=== PATIENT | female | born 1990 | race African-American/Black ===

== ENCOUNTER 2017-03-19 17:05 | Inpatient (IN) | payer MEDICARE ==
[2017-03-19 17:09] VITALS: BMI 27.4
--- NOTE | 2017-03-19 17:18 | PDOC ---
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 Pt is . She is 5 weeks with a LMP 02/11. Went to see Dr Andersen with a beta HCG 4327 on 03/17 and nothing seen on sono. Pt went to Dr Palomares again 03/19 with a beta hcg 5894. At an urgent care she went for a sono with a suggestive right ectopy. She is now here for work up to r/o ectopy vs miscarrage. Past History - Past Medical History Allergies/Adverse Reactions: Allergies Allergy/AdvReac Type Severity Reaction Status Date / Time No Known Allergies Allergy Verified 03/19/17 17:09 Home Medications: Ambulatory Orders NK [No Known Home Medication] 03/19/17 Other medical history: denies - Suicide/Smoking/Psychosocial Hx Smoking History: Never smoked Information on smoking cessation initiated: No Hx Alcohol Use: No Drug/Substance Use Hx: No Substance Use Type: None Review of Systems - Review of Systems Able to Perform ROS?: Yes All Other Systems: Reviewed and Negative *Physical Exam - Vital Signs Last Vital Signs Temp Pulse Resp BP Pulse Ox 98.2 F 85 18 118/68 99 03/19/17 17:07 03/19/17 17:07 03/19/17 17:07 03/19/17 17:07 03/19/17 17:07 - Physical Exam HEENT: positive: Normal ENT Inspection Respiratory/Chest: positive: Lungs Clear Cardiovascular: positive: Regular Rhythm, Regular Rate Gastrointestinal/Abdominal: positive: Normal Bowel Sounds, Flat, Soft, Other ( denies any pain) Extremity: positive: Normal Capillary Refill, Normal Inspection Integumentary: positive: Dry, Warm Neurologic: positive: Fully Oriented ED Treatment Course - LABORATORY CBC & Chemistry Diagram: 03/19/17 17:30 Medical Decision Making - Medical Decision Making 03/19/17 18:13 Pt seen and examained. Pt to undergo a u/s of pelvic for evaluation of ectopic . while in ER the pt developed vaginal bleeding with clots being passed. =labs -beta hcg -transvaginal -notifiy Dr. Alcaraz the results
--- NOTE | 2017-03-19 17:52 | PDOC ---
*Physical Exam - Vital Signs Last Vital Signs Temp Pulse Resp BP Pulse Ox 98.2 F 85 18 118/68 99 03/19/17 17:07 03/19/17 17:07 03/19/17 17:07 03/19/17 17:07 03/19/17 17:07 - Physical Exam Comments: 03/19/17 17:52 The patient was examined by [KEVYN Ferrell] under my direct supervision. I personally evaluated the patient. I concur with the above findings and the plan of care. 03/19/17 21:34 Patient with right adnexal ectopic with FH. Patient evaluated by Dr. Palomares of [facility] and advised of the need for laparoscopy and likely salpingectomy but is currently refusing. Patient wishes to be administered methotrexate which she has been advised is a less desirable option for treatment of her ectopic at this time. Patient is expressed understanding that she is still at risk of rupture of ectopic which may necessitate emergent surgery, transfusion of blood and may result of patient's . Patient is signing out AGAINST MEDICAL ADVICE at this time. 03/19/17 21:54 pt changed her mind and will undergo laporotomy. ED Treatment Course - LABORATORY CBC & Chemistry Diagram: 03/19/17 17:30 *DC/Admit/Observation/Transfer Diagnosis at time of Disposition: Ectopic - Discharge Dispostion Condition at time of disposition: Guarded
[2017-03-19 17:54] LABS: BASOPHIL 1.2 % (0-2.0); EOSINOPHIL 1.8 % (0-4.5); MCH 28.5 pg (25.7-33.7); MCHC 32.9 g/dl (32.0-36.0); MEAN CELL VOLUME 86.6 fl (80-96); MEAN PLT VOLUME 9.4 fl (7.5-11.1); NEUTROPHILS 63.5 % (42.8-82.8); PLATELET COUNT 236 K/MM3 (134-434); RDW 13.6 % (11.6-15.6); WHITE BLOOD COUNT 5.9 K/mm3 (4.0-10.0)
[2017-03-19 18:24] LABS: URINE APPEARANCE CLEAR; URINE BILIRUBIN NEGATIVE (NEGATIVE); URINE BLOOD 2+ (NEGATIVE); URINE COLOR YELLOW; URINE GLUCOSE (UA) NEGATIVE (NEGATIVE); URINE KETONE NEGATIVE (NEGATIVE); URINE NITRITE NEGATIVE (NEGATIVE); URINE PROTEIN NEGATIVE (NEGATIVE); URINE UROBILINOGEN NEGATIVE mg/dL (0.2-1.0)
[2017-03-19 18:29] LABS: URINE BACTERIA FEW /hpf (NONE SEEN); URINE MUCUS FEW; URINE RBC 42 /hpf (0-3)
--- NOTE | 2017-03-19 19:52 | PDOC ---
*Physical Exam - Vital Signs Last Vital Signs Temp Pulse Resp BP Pulse Ox 98.2 F 85 18 118/68 99 03/19/17 17:07 03/19/17 17:07 03/19/17 17:07 03/19/17 17:07 03/19/17 17:07 - Physical Exam General Appearance: Yes: Nourished ED Treatment Course - LABORATORY CBC & Chemistry Diagram: 03/19/17 17:30 - ADDITIONAL ORDERS Additional order review: Laboratory Results 03/19/17 03/19/17 03/19/17 18:00 17:30 17:30 Beta HCG, Quant 6634.2 Urine Color Yellow Urine Appearance Clear Urine pH 5.0 Urine Protein Negative Urine Glucose (UA) Negative Urine Ketones Negative Urine Blood 2+ H Urine Nitrite Negative Urine Bilirubin Negative Urine Urobilinogen Negative Urine RBC 42 Urine Bacteria Few Urine Mucus Few Blood Type A POSITIVE Antibody Screen Cancelled Spec Expiration Date Cancelled 03/19/17 17:30 RBC 4.70 MCV 86.6 MCHC 32.9 RDW 13.6 MPV 9.4 Neutrophils % 63.5 Lymphocytes % 22.7 Monocytes % 10.8 H Eosinophils % 1.8 Basophils % 1.2 Progress Note - Progress Note Progress Note: 1948hrs: Called Dr. Palomares/[phone]/ notified of right sided ectopic 0.28cm 5 weeks/6 days. Will come in to see pt in the ER *DC/Admit/Observation/Transfer Diagnosis at time of Disposition: Ectopic Qualifiers: Location of ectopic : tubal Intrauterine status: without intrauterine Laterality: right Qualified Code(s): O00.101 - Right tubal without intrauterine ; O00.101 - Right tubal without intrauterine - Discharge Dispostion Condition at time of disposition: Guarded Admit: Yes
[2017-03-19] MEDS ORDERED: METHOTREXATE SODIUM/PF 25 MG/ML VIAL IM ONE (21:16)
--- NOTE | 2017-03-19 21:26 | CON.OBG ---
Consult Consult Specialty:: ER Referred by:: Dr. He Reason for Consultation:: Right ectopic - History of Present Illness Chief Complaint: Pt is found to have a right ectopic on outpatient US. She was referred to ER for evaluation and treatment. In the ER, the dx of right ectopic was confirmed. She is asymptomatic. No pain, bleeding, SOB, chest pain, etc. History of Present Illness: LMP 02/11/17. No IUD on US. (+) right ectopic on/near right ovary, with (+) FHR= 102. No free fluid. Official report is pending. - History Source History Provided By: Patient, Medical Record Limitations to Obtaining History: No Limitations - Past Medical History PEOPLE GREETER: No: Alzheimer's, CVA, Dementia, Migraine, Multiple Sclerosis, Peripheral Neuropathy, Parkinson's, Seizure, Syncope, TIA, Vertigo, Other Cardio/Vascular: No: AFIB, Aneurysm, Aortic Insufficiency, Aortic Stenosis, CAD , CHF, Deep Vein Thrombosis, HTN, Hyperlipdemia, [place], Mitral Insufficiency, Mitral Stenosis, Murmur, Pulmonary Hypertension, Other Pulmonary: Yes: Asthma Gastrointestinal: No: Ascites, Cancer, Constipation, Crohn's Disease, Diverticulitis, Diverticulosis, Esophageal Varices, Gastritis, GERD, GI Bleed, Hemorrhoids, Hiatal Hernia, Inflamatory Bowel Disease, Irritable Bowel Disease, Pancreatitis, Peptic Ulcer Disease, Ulcerative Colitis, Other Hepatobiliary: No: Cirrhosis, Cholelithiasis, Cholecystitis, Choledocholithiasis , Hepatitis A, Hepatitis B, Hepatitis C, Other Renal/: No: Renal Failure, Renal Inusuff, BPH, Cancer, Hematuria, Hemodialysis , Neurogenic Bladder, Renal Calculi, UTI, Other Reproductive: No: Ectopic , Endometriosis, Fibroids, PID, Polycystic Ovary Syndrome, Postmenopausal, Other ...LMP: 02/11/17 ...: Yes Heme/Onc: No: Anemia, B12 Deficiency, Bleeding Disorder, Cancer, Current Chemotherapy, Current Radiation Therapy, Hemochromatosis, Hypercoaguable State, Myeloproliferative Synd, Sickle Cell Disease, Sickle Cell Trait, Thrombocytopenia, Other Infectious Disease: No: AIDS, C-Diff, Herpes Zoster, HIV, MRSA, STD's, Tuberculosis, VREF, Other Psych: No: Addictions, Anxiety, Bipolar, Depression, Panic, Psychosis, Schizophrenia, Other Musculoskeletal: No: Bursitis, Chronic low back pain, Hemiparesis, Hemiplegia, Osteoarthritis, Paraplegia, Other Rheumatology: No: Fibromyalgia, Gout, Lupus, Rheumatoid Arthritis, Sarcoidosis, Vasculitis, Other ENT: No: Allergic Rhinitis, Sinusitis, Other Endocrine: No: [place]'s Disease, Walker's Disease, Diabetes Insipidus, Diabetes Mellitus, Hyperparathyroidism, Hyperthyroidism, Hypothyroidism, Osteopenia, SIADH, Other Dermatology: No: Basal Cell, Cellulitis, Eczema, Melanoma, Psoriasis, Squamous Cell, Other - Past Surgical History Past Surgical History: Yes: None - Alcohol/Substance Use Hx Alcohol Use: No History of Substance Use: reports: None - Smoking History Smoking history: Former smoker (stopped recently) Have you smoked in the past 12 months: Yes - Social History Usual Living Arrangement: With Significant Other ADL: Independent Occupation: Maintenance Inspector at a [employer] Place of : Other ([place]) Came to [place] (year[place] 2012 History of Recent Travel: No Home Medications - Allergies Allergies/Adverse Reactions: Allergies Allergy/AdvReac Type Severity Reaction Status Date / Time No Known Allergies Allergy Verified 03/19/17 17:09 - Home Medications Home Medications: Ambulatory Orders NK [No Known Home Medication] 03/19/17 Family Disease History - Family Disease History Family Disease History: Respiratory: Brother (Asthma), Other: Mother (Thyroid dz ) Review of Systems - Review of Systems Constitutional: reports: No Symptoms Eyes: reports: No Symptoms HENT: reports: No Symptoms Neck: reports: No Symptoms Cardiovascular: reports: No Symptoms Respiratory: reports: No Symptoms Gastrointestinal: reports: No Symptoms Genitourinary: reports: No Symptoms Breasts: reports: No Symptoms Reported Musculoskeletal: reports: No Symptoms Integumentary: reports: No Symptoms Neurological: reports: No Symptoms Endocrine: reports: No Symptoms Hematology/Lymphatic: reports: No Symptoms Psychiatric: reports: No Symptoms Pain Intensity: 0 Physical Exam-CASE FINISHER Vital Signs: Vital Signs Temperature 99.4 F 03/19/17 20:39 Pulse Rate 85 03/19/17 20:39 Respiratory Rate 17 03/19/17 20:39 Blood Pressure 109/75 03/19/17 20:39 O2 Sat by Pulse Oximetry (%) 100 03/19/17 20:39 Constitutional: Yes: Well Nourished, No Distress, Calm Eyes: Yes: WNL, Conjunctiva Clear HENT: Yes: WNL, Atraumatic, Normocephalic Neck: Yes: WNL, Supple, Trachea Midline Cardiovascular: Yes: WNL, Regular Rate and Rhythm Respiratory: Yes: WNL, Regular, CTA Bilaterally Gastrointestinal: Yes: WNL, Normal Bowel Sounds, Soft ...Rectal Exam: Yes: Deferred Renal/: Yes: WNL Pelvis: Yes: WNL External Genitalia: Yes: Normal Vaginal Exam: Yes: Normal Cervix: Yes: Normal Uterus: Yes: Normal Adnexa: Normal: Left, Tender: Right (mildly tender) Musculoskeletal: Yes: WNL Extremities: Yes: WNL Edema: No Integumentary: Yes: WNL Neurological: Yes: WNL, Alert, Oriented ...Motor Strength: WNL Psychiatric: Yes: WNL, Alert, Oriented Labs: CBC, BMP 03/19/17 17:30 Assessment/Plan 26yo P2 with right ectopic that is not ruptured and pt is asymptomatic. The US detected a positive FHR. I had several discussions with the pt and her partner about the diagnosis of the right ectopic and treatment options. We discussed the options of surgery and MTX. I explained the risks of ruptured ectopic , hemorrhage, need for emergency operations, blood transfusion, etc. I also explained the surgical risks at length, including but not limited to bleeding, infection, scarring, pain, injury/ perforation of surrounding structures or organs, need for laparotomy, excision of the Fallopian tube and/or ovary, need for additional surgery to repair and treat any complications, etc. I explained that all surgeries have risks and no guarantees can be provided. The pt initially considered MTX, then changed her mind and decided to proceed with surgery. The consent form was signed.
[2017-03-19 22:57] LABS: URINE LEUK ESTERASE Negative (NEGATIVE)
[2017-03-19] MEDS ORDERED: LACTATED RINGERS SOLUTION 1,000 ML IV SCH (23:30)
[2017-03-19] MEDS ORDERED: LIDOCAINE HCL/PF 2% SDV 5ML VIAL ONE (23:48)
[2017-03-19] MEDS ORDERED: PROPOFOL 20 ML ONE (23:49)
[2017-03-19] MEDS ORDERED: MIDAZOLAM HCL 2 MG/2 ML SINGLE DOSE VIAL ONE (23:49)
[2017-03-19] MEDS ORDERED: ROCURONIUM BROMIDE 50 MG/5 ML VIAL ONE (23:49)
[2017-03-19] MEDS ORDERED: DEXAMETHASONE SOD PHOSPHATE 4 MG/1 ML VIAL ONE (23:49)
[2017-03-20] MEDS ORDERED: ceFAZolin SODIUM 1 GM VIAL ONE
[2017-03-20] MEDS ORDERED: ceFAZolin SODIUM 1 GM VIAL IVPB ONE (00:02)
[2017-03-20] MEDS ORDERED: DEXAMETHASONE SOD PHOSPHATE 4 MG/1 ML VIAL ONE (00:51)
[2017-03-20] MEDS ORDERED: BUPIVACAINE HCL/PF 0.5% (5MG/ML) 10 ML VIAL IJ ONE ×2 (00:58)
[2017-03-20] MEDS ORDERED: NEOSTIGMINE METHYLSULFATE 0.5 MG/ML - 10 ML MDV ONE (01:05)
[2017-03-20] MEDS ORDERED: GLYCOPYRROLATE 0.2 MG/1 ML VIAL ONE (01:05)
[2017-03-20] MEDS ORDERED: oxyCODONE HCL 5 MG TABLET PO PRN (01:07)
[2017-03-20] MEDS ORDERED: ACETAMINOPHEN 325 MG TABLET (FP) PO PRN (01:07)
[2017-03-20] MEDS ORDERED: IBUPROFEN 600 MG TABLET (FP) PO PRN (01:07)
[2017-03-20] MEDS ORDERED: ONDANSETRON 4 MG/2 ML VIAL IVPUSH PRN (01:15)
[2017-03-20] MEDS ORDERED: HYDROmorphone HCL CARPU-JECT 2 MG/1 ML DISP.SYRIN ONE ×2 (01:16→01:35)
[2017-03-20] MEDS: HYDROmorphone HCL CARPU-JECT 1 MG/1 ML DISP.SYRIN IVPUSH PRN ×3 (01:16→01:36)
--- NOTE | 2017-03-20 01:17 | OP ---
Operative Note - Note: Operative Date: 03/20/17 Pre-Operative Diagnosis: Right ectopic Operation: 1. Laparoscopic right salpingoophorectomy. 2. D&C Findings: Scant endometrial curettings on D&C. Hemoperitoneum ~10 ml. Multiple pelvic adhesions b/w bilateral Fallopian tubes, ovaries, uterus. The right Fallopian tube was densely adherent to the right ovary/ovarian mass. The right Fallopian tube was dilated with an ectopic and bleeding from the fibriated end. The right ovary was replaced by a large complex ovarian mass/tube complex and the entire structure was observed to be twisted around the utero-ovarian ligament c/w torsion and adherent to the uterine cornua. Otherwise normal uterus. The left ovary contained a simple cyst. Post-Operative Diagnosis: Same as Pre-op Surgeon: Abdullahi Palomares Manager Agency: Tenisha Marin Anesthesiologist/DIABETES SOLUTIONS SPECIALIST: Ishmael Boo Anesthesia: General Specimens Removed: 1. Endometrial curettings. 2. Right Fallopian tube with ectopic pegnancy and right ovary with ovarian mass. The right ovarian mass was opened withing the endobag and noted to be c/w dermoid cyst consisting of sebacious material, hair, teeth. Estimated Blood Loss (mls): 5 (hemoperitoneum 10ml) Drains & Tubes with Location: Banda Cath Drains, Volume Out (mls): 100 Blood Volume Replaced (mls): 0 Fluid Volume Replaced (mls): 1,000 Operative Report Dictated: Yes
[2017-03-20] MEDS ORDERED: HYDROmorphone HCL CARPU-JECT 1 MG/1 ML DISP.SYRIN IVPUSH PRN (01:45)
[2017-03-20 10:32] VITALS: BP 108/76; PULSE 90; TEMP 98.8
--- NOTE | 2017-03-20 10:50 | DS ---
Physical Exam-INTERNATIONAL TRAVEL CONSULTANT Vital Signs: Vital Signs Temperature 98.8 F 03/20/17 10:00 Pulse Rate 90 03/20/17 10:00 Respiratory Rate 20 03/20/17 10:00 Blood Pressure 108/76 03/20/17 10:00 O2 Sat by Pulse Oximetry (%) 98 03/20/17 02:45 Constitutional: Yes: Well Nourished, No Distress, Calm Eyes: Yes: WNL, Conjunctiva Clear, EOM Intact HENT: Yes: WNL, Atraumatic, Normocephalic Neck: Yes: WNL, Supple, Trachea Midline Cardiovascular: Yes: WNL, Regular Rate and Rhythm Respiratory: Yes: WNL, Regular, CTA Bilaterally Gastrointestinal: Yes: WNL, Normal Bowel Sounds, Soft ...Rectal Exam: Yes: Deferred Renal/: Yes: WNL Pelvis: Yes: WNL External Genitalia: Yes: Normal Internal Exam Deferred: Yes Musculoskeletal: Yes: WNL Extremities: Yes: WNL Edema: No Integumentary: Yes: WNL Wound/Incision: Yes: Clean/Dry, Well Approximated, Sutures Intact Neurological: Yes: WNL, Alert, Oriented ...Motor Strength: WNL Psychiatric: Yes: WNL, Alert, Oriented Discharge Summary Reason For Visit: ECTOPIC Current Active Problems Ectopic (Acute) Right Dermoid cyst Procedures: Principal: Laparoscopic right salpingoophorectomy Condition: Guarded - Instructions Diet, Activity, Other Instructions: Return to your doctor's office in 2-[address] Abdullahi Palomares Cut Out Marker discharge instructions Physical activity Resume your normal everyday activity as tolerated no heavy lifting or exercise until seen by your surgeon. You may walk unlimited jose of and climb stairs. You may resume driving the car when you feel safe and comfortable behind the wheel. No sexual activity as instructed by Dr. Palomares. Wound care If you have a bandage, leave it on, and keep dry for 48-72 hours. After that time discard the outer bandage. If they are tapes on the skin under the out of bandage leave them in place. They will peel off in the next 7 to 10 days. Do Not Peel them off. You may shower the day after surgery. If there are tapes present on the skin, you may shower over them. Diet There are no dietary restrictions. Eat healthy, high-fiber foods. Drink 6 to 8 glasses of liquid each day. This will assist in keeping your bowels are regular. Pain management You may take Tylenol or acetaminophen or Ibuprofen (for example, Motrin, Advil etc.) from my pain prescription medication is ordered should be taken as prescribed for moderate to severe pain. Call Dr. Palomares for any of the following: Severe pain not relieved by medication Fever of 101 or higher Excessive bleeding or drainage on dressing Inability to urinate Call the office at [phone] for an appointment in 2-3 weeks. Referrals: Abdullahi Palomares MD [Staff Physician] - Disposition: HOME - Home Medications Comprehensive Discharge Medication List: Ambulatory Orders NK [No Known Home Medication] 03/19/17
--- NOTE | 2017-03-20 13:54 | OP ---
DATE OF OPERATION: 03/20/2017 PREOPERATIVE DIAGNOSIS: Right ectopic . POSTOPERATIVE DIAGNOSIS: Right ectopic with a large right ovarian mass that, upon further investigation, was consistent with a mature teratoma. SURGEON: Abdullahi Palomares MD PARTNERSHIP DEVELOPMENT MANAGER: Tenisha Marin MD ANESTHESIOLOGIST: Ishmael Boo MD ANESTHESIA: General. COMPLICATIONS: None. ESTIMATED BLOOD LOSS: 5 mL plus 10 mL of hemoperitoneum. PROCEDURE: 1. Dilation and curettage. 2. Laparoscopic right salpingo-oophorectomy. 3. Lysis of adhesions. PATHOLOGY: Right fallopian tube with ectopic ; large ovarian mass with the right ovary; and endometrial curettings. FINDINGS: Examination under anesthesia revealed a small, anteverted uterus. Uterine curettage revealed scant endometrial tissue, which was sent to pathology for examination. Laparoscope revealed a small amount of hemoperitoneum, approximately 10 mL. Both fallopian tubes and ovaries were encased in multiple adhesions. The left ovary contained fewer and thinner adhesions. Upon lysis of adhesions, the left ovary was noted to be within normal limits and contained a simple ovarian cyst. The right fallopian tube was densely adherent to the right ovary. The right fallopian tube contained an ectopic , which was bleeding from the fimbriated end. The right fallopian tube was also densely adherent to the right ovary and the ovarian mass. The entire right uteroovarian complex was twisted around the uteroovarian ligament and densely adherent to the right cornua. Upon dissection and excision, the right ovarian mass was noted to be consistent with a mature teratoma that contained a lot of hair, sebaceous material as well as teeth. PROCEDURE: The patient was met preoperatively. Risks, benefits, and alternatives of surgery were discussed in detail. All questions were answered. Risks of infection, bleeding, scarring, laparotomy, excision of the ovary and/or fallopian tube were discussed. All questions were answered. The patient was then brought to the OR with the IV running. She was placed on the surgical table in the supine position. The general endotracheal anesthesia was achieved without difficulty. The patient was then positioned in a dorsal lithotomy position using adjustable Sami stirrups. The patient was examined under anesthesia with the findings as described above. A small amount of vaginal bleeding was noted upon examination under anesthesia. A Banda catheter was inserted with the sterile technique and left to drain to gravity. The cervical os was dilated to accommodate size 21 Marti dilator. A gentle uterine curettage was performed and the uterine curettings were sent to pathology for evaluation. A HUMI uterine manipulator was introduced inside the uterine cavity. The surgeons then re-gloved and proceeded with the laparoscopy part of the procedure. A 5-mm intraumbilical incision was made with the knife. A Veress needle was introduced through the umbilical incision. Intraperitoneal placement was confirmed. Pneumoperitoneum was then induced using CO2 gas with the intraabdominal pressure limited to 15 mmHg. Once the pneumoperitoneum was achieved, the Veress needle was removed. A 5-mm trocar was introduced through the umbilical incision under direct visualization with the laparoscope. Atraumatic placement was confirmed. Once the laparoscope was introduced into the abdominal cavity, a small amount of hemoperitoneum was noted. The uterus, ovaries, and fallopian tubes were as described previously in the "findings" part of the dictation. A 5-mm incision was then made with the knife in the right lower quadrant. A 5-mm trocar was introduced under direct visualization. A 10-mm incision was then made within the left lower quadrant and a 10-mm trocar was introduced under direct visualization. Lysis of adhesions was then undertaken to free up the left fallopian tube and ovary. The left fallopian tube was noted to be largely normal, besides multiple adhesions to the left ovary. The left ovary was also normal and contained a simple left ovarian cyst. The right adnexa was encased in dense adhesions. The right tuboovarian complex was twisted around the uteroovarian ligament and adherent to the right cornua. Lysis of adhesions was performed to free up and untwist the uteroovarian complex. The right fallopian tube was noted to be containing an ectopic . The tube and ectopic were also densely adherent to the right ovarian mass. The right ovary and ovarian mass appeared to be complex. At that point, the decision was made to proceed with the right salpingo-oophorectomy. LigaSure was used to cauterize and transect the right fallopian tube, right uteroovarian ligament as well as the right infundibulopelvic ligament. Care was taken to stay away from the right pelvic sidewall and the right ureter. Good hemostasis was noted. Once the right fallopian tube with ectopic , ovary, and ovarian mass were excised, the entire specimen was placed inside the EndoBag. The EndoBag was brought to the surface. The right fallopian tube with ectopic was removed first and sent to pathology. The right ovarian mass was opened and emptied of contents. The ovarian mass was noted to contain a large amount of sebaceous material and hair with teeth and is consistent with a mature teratoma. The entire specimen was removed and submitted to pathology for evaluation. The abdomen and pelvis were then irrigated with copious amounts of normal saline. Once the saline was aspirated, good hemostasis was confirmed. A 10-mm abdominal incision was closed with 0 Vicryl sutures for the fascia. All of the instruments were removed from the patient. Sponge, instrument, and laparotomy counts were correct. The skin was closed with 4-0 Biosyn sutures. Good hemostasis was noted. HUMI and Banda catheters were removed. The patient was returned to supine position and transferred to recovery room awake and in stable condition. Idris [id number]
--- NOTE | 2017-03-23 09:01 | PATH ---
Surgical Pathology Report Patient Name: ENEIDA SALDAÑA [facility]. Rec. #: [id number] /Age/Gender: 1990 (Age: 26) / F Account: [id number] [facility] Taken: 03/20/2017 Received: 03/21/2017 Reported: 03/23/2017 Physicians: Abdullahi Palomares M.D. Specimen(s) Received A: ENDOMETRIAL CURETTINGS B: RIGHT FALLOPIAN TUBE, ECTOPIC C: RIGHT OVARY WITH DERMOID CYST Clinical History Ectopic Final Diagnosis A. Endometrium, curetting: Hypersecretory endometrium and portions of decidua. B. Right fallopian tube, salpingectomy: Ectopic (tubal) . C. Right ovary, excision: Ovary with foreign body reaction to keratinous material consistent with response to ruptured cyst of mature cystic teratoma. No immature elements identified. Electronically Signed Aleks Bautista M.D. Gross Description A. Received in formalin labeled "endometrial curettings," is a 2.5 x 2.0 x 0.3 cm aggregate of joel soft tissue fragments. The formalin is filtered and the specimen is entirely submitted in one cassette. B. Received in formalin labeled "right ectopic and tube," is a 3.5 cm in length fimbriated, dilated portion of fallopian tube. The outer surface displays fibrous adhesions. Sectioning reveals a dilated lumen containing blood clot. No definite somatic tissue is identified. Script Worker sections are submitted in 3 cassettes. C. Received in formalin labeled "right ovary with dermoid cyst," is a 7.7 x 7.0 x 3.2 cm aggregate of joel fragmented portions of soft tissue, consistent with a disrupted cyst. Also received within the same container is abundant joel sebaceous material and hair. No remaining normal ovarian parenchyma is identified. Script Worker sections are submitted in 5 cassettes. DL/03/21/2017 saudi03/21/2017
== END 2017-03-20 12:30 | disposition home or self-care (01) | DRG 545 ==
LOC: JER 17:05 → JERBED 21:45 → UNDOADMIN 21:49 → J3W 23:05
PROVIDERS: ADMIT Obstetrics & Gynecology; ATTEND Obstetrics & Gynecology
PROC: 0UT5FZZ Resection of Right Fallopian Tube, Via Natural or Artificial Opening With Percutaneous Endoscopic Assistance (ICD-10-PCS; principal; 2017-03-20)
PROC: 0UT0FZZ Resection of Right Ovary, Via Natural or Artificial Opening With Percutaneous Endoscopic Assistance (ICD-10-PCS; 2017-03-20)
PROC: 10D28ZZ Extraction of Products of Conception, Ectopic, Via Natural or Artificial Opening Endoscopic (ICD-10-PCS; 2017-03-20)
PROC: 0DNW4ZZ Release Peritoneum, Percutaneous Endoscopic Approach (ICD-10-PCS; 2017-03-20)
DX: O00.90 Unspecified ectopic pregnancy without intrauterine pregnancy (principal); D27.0 Benign neoplasm of right ovary; N73.6 Female pelvic peritoneal adhesions (postinfective); K66.1 Hemoperitoneum
CPT/HCPCS: 36415; 76817-TC; 81003; 81015; 84702; 85025; 86850; 86900; 86901; 88305-TC; 88307-TC; 94010; 94760; 99283-25